=== PATIENT | female | born 1940 | race Caucasian/White ===

== ENCOUNTER → 2023-12-16 12:49 | Outpatient (REF) | payer OTHER, SELFPAY | LOC: HWRAD 12:49 | PROVIDERS: ATTENDING PHYSICIAN Internal Medicine; FAMILY PHYSICIAN Family Medicine | DX: M81.0 Age-related osteoporosis without current pathological fracture (principal) | CPT/HCPCS: 77080 ==

== ENCOUNTER → 2024-03-06 08:02 | Outpatient (REF) | payer OTHER, SELFPAY | LOC: WOUND 08:02 | PROVIDERS: ATTENDING PHYSICIAN Surgery; FAMILY PHYSICIAN Family Medicine | DX: L97.829 Non-pressure chronic ulcer of other part of left lower leg with unspecified severity (principal); R60.0 Localized edema; I48.11 Longstanding persistent atrial fibrillation; I48.91 Unspecified atrial fibrillation; I50.32 Chronic diastolic (congestive) heart failure; Z79.01 Long term (current) use of anticoagulants | CPT/HCPCS: 99203 ==

== ENCOUNTER → 2024-03-27 13:46 | Outpatient (REF) | payer OTHER, SELFPAY | LOC: HWRCS 13:46 | PROVIDERS: ATTENDING PHYSICIAN Internal Medicine Cardiovascular Disease; FAMILY PHYSICIAN Family Medicine | DX: I48.91 Unspecified atrial fibrillation (principal); R60.0 Localized edema; R53.83 Other fatigue | CPT/HCPCS: 93306 ==

== ENCOUNTER → 2024-11-03 12:56 | Outpatient (REF) | payer OTHER, SELFPAY | LOC: RAD 12:56 | PROVIDERS: ATTENDING PHYSICIAN Surgery; FAMILY PHYSICIAN Family Medicine | DX: K43.2 Incisional hernia without obstruction or gangrene (principal); R10.84 Generalized abdominal pain | CPT/HCPCS: 74176 ==

== ENCOUNTER → 2025-04-15 12:34 | Outpatient (REF) | payer OTHER, SELFPAY | LOC: RCS 12:34 | PROVIDERS: ATTENDING PHYSICIAN Internal Medicine Cardiovascular Disease; FAMILY PHYSICIAN Family Medicine | DX: I50.32 Chronic diastolic (congestive) heart failure (principal); R42 Dizziness and giddiness | CPT/HCPCS: 93306 ==

== ENCOUNTER 2025-04-22 06:06 | Day surgery (SDC) | payer OTHER, SELFPAY ==
[2025-04-22] VITALS (10 sets, daily range): BP systolic 95–141; BP diastolic 72–96; BMI 30.3
--- NOTE | 2025-04-22 08:34 | ITS.CL.PACE ---
[employer] - Pacemaker Implant
Pacemaker Implant
Procedure Report:
Left Bundle Branch pacing Permanent Pacemaker Placement:
Ms. Taveras is an 84 years old woman with permanent atrial fibrillation with difficult to control heart rate and heart failure with preserved ejection fraction with NYHA class III heart failure symptoms with severe bradycardia and pauses with
pre-syncope was recommended a cardiac resynchronization therapy with LBB pacing.
Indications:
Permanent atrial fibrillation with rapid ventricular response with heart failure (NYHA class III symptoms) failed medical therapy and bradycardia with pre-syncope.
Date of the Procedure: 04/22/25
Pre-Operative Diagnosis: Atrial fibrillation with severe bradycardia and pauses with pre-syncope and hx of rapid ventricular response for ablate and pace strategy.
Post-Operative Diagnosis: Atrial fibrillation with rapid ventricular response for ablate and pace strategy.
Procedure Performed: MATTRESS INSPECTOR-P IMPLANTATION with LEFT BUNDLE BRANCH PACING
Surgeon:
Adele Clement MD
Assistants:
EP staff
Anesthesia:
See anesthesia records
Detailed Description of the Procedure:
The patient was identified using hospital identification and informed consent obtained for the procedure. The risks were explained to the patient and the family including, but not limited to: Bleeding, infection, arrhythmia, stroke,
vascular/cardiac/lung puncture, surgery, pacemaker dependency/device malfunction. All questions were answered.
A surgical pause was performed in accordance with hospital regulations. Anesthesia service provided sedation as reported separately. Antibiotics administered IV for risk of bacterial colonization. After obtaining informed and written consent, the
patient was brought to the electrophysiology laboratory.
The initial rhythm was atrial fibrillation.
The left chest was prepped from the nipple to the angle of the jaw with chlorhexidine, and draped following sterile technique in usual routine.�
A surgical pause and time out was performed immediately prior to the procedure with review of her medical history, recent labs, allergies and medications with site of procedure identified and consent noted in the chart. Antibiotics pre operatively
given. All team members concurred.
Following infiltration with local anesthetic, the cephalic vein cut down was performed. The guide wire was advanced to the inferior vena cava (IVC) under flouro guidance.
The guide wire was advanced to the RA and was advanced to the RV. The preformed curved long hemostatic peel away HIS sheath was advanced into the RV cavity. A left bundle pacing wire was advanced into the sheath to the tip with ventricular signals
noted with unipolar manner. The HIS location was identified under guidance of the flouroscopy and the pacing wire signals. The sheath with the pacing lead was moved deeper into the RV cavity on the septum at a more inferior and distal to the HIS
signals.
Once adequate signals were noted on the electrograms of the pacing lead in the sheath with W pattern signals on the RV septum, the lead was advanced and clockwise turns were done under fluoroscopic guidance. The septum was engaged and the lead was
paced intermittently after every 2-3 turns. The Impedance of the lead was measured that remained stable around 700 Ohm and the lead was not able to advance into the septum. The pacing signals from the lead showed only RV septal pacing, though narrow
but not left bundle pacing. This was thought to be due to the entanglement effect of the lead to the septal endocardium. The decision was made to remove the lead and relocate to another locations.
Another septal location was identified with adequate signals noted on the pacing leads and good flouroscopic location. There was sheath approximation conformed on [place] view and the pacing lead was advanced with clockwise turns into the septal
location. The septum was successfully engaged. The lead was paced and septal pacing was noted. The sheath was placed again to the septum and the lead was advanced 2-3 turns with pacing with each advancement. The ventricular capture was monitored
throughout and the captures gradually changed from RV pacing to non-selective pacing to LBB pacing with R wave on V1.
With RBBB pattern noted on the pacing lead, it was decided to accept the location as optimal location. The long guiding sheath was cut and removed from the RV without change in lead position, impedance, sensing, or capture. The lead was sutured to
the underlying pectoralis fascia with 2-0 Ethibond stitches.
The leads were attached to the pulse generator in standard configuration with acceptable sensing and threshold parameters. The pocket was created using blunt dissection. Excellent hemostasis achieved. The pocket was irrigated with antibiotic
solution; the pocket was inspected with no active bleeding noted. The device and the leads were placed in the pocket.
Deep subcutaneous tissues were closed with two layers of 2-0 VLOC sutures; intermediate subcutaneous tissue was reopposed using a running 2-0 V loc suture, and the dermis was reopposed using a running 4-0 V loc subcuticular suture. A pressure
dressing was applied. Sponge counts / sharp counts were appropriate.
Procedure End:
The procedure was tolerated well. Aquacel bandaged was applied.
Estimated Blood loss:
10 cc
Specimens Removed:
No cultures and no specimens were obtained. No intraoperative pathology was identified.
Urine output:
None
Packs / Drains/ Tubes:
None
Instrument / Sponge Count Correct:
Yes
Flouro time:
2.9min
Complications of the Procedure:
None
Condition of Patient at Time of Transfer:
Hemodynamically stable with no neurological or vascular compromise.
Device information:�
Generator: [employer]; Model: W1SR01; Serial # [id number]�
����������� RV LBB pacing lead: [employer]; Model: 3830-69; Serial # [id number]
����������������������� Measured data on the RV lead was sensing of 8 mV, impedance of 580 ohms and threshold of 0.375 V at 0.4ms.
PROGRAMMING PARAMETERS:�
Kendall parameter settings were VVIR 60 �
�����������
����������� Rate Adaptive A-V Interval: on
Summary:
Successful implantation of MRI compatible LBB pacing single chamber pacemaker.
Results/Recommendations:
-Please follow up CXR�
1. Please provide patient with adequate pain control�
Instructions to be given to patient:�
- Please follow up with [facility] at [address] [place] [address] ([phone]) to get your wound checked in 2 weeks of your discharge. Then follow with
- Do not wet incision site until after it is evaluated at cardiology clinic. No baths or showers until then. Sponge baths / showers are OK but dab dry the dressing after it is wet.�
- Allow 'steri strips' to fall off on their own�
- Do not lift left elbow above shoulder, particularly with sudden jerking movements, for 1 month�
- Do not lift anything weighing more than 5 pounds with the left arm for 1 month�
- If you notice any fevers, shortness of breath, lightheadedness, chest pain, or worsening swelling in the wound site, please contact the arrhythmia clinic, contact your budget coordinator, or present to the hospital for evaluation.�
Adele Clement MD
Electrophysiology
[2025-04-22] MEDS: TYLENOL 650 MG PO (09:59)
== END 2025-04-22 11:25 | disposition home or self-care (01) ==
LOC: CATH 06:06
PROVIDERS: ATTENDING PHYSICIAN Internal Medicine Cardiovascular Disease; FAMILY PHYSICIAN Family Medicine; OTHER PHYSICIAN Internal Medicine Cardiovascular Disease
DX: I13.0 Hypertensive heart and chronic kidney disease with heart failure and stage 1 through stage 4 chronic kidney disease, or unspecified chronic kidney disease (principal); R55 Syncope and collapse; R00.1 Bradycardia, unspecified; I48.21 Permanent atrial fibrillation; I50.32 Chronic diastolic (congestive) heart failure; N18.30 Chronic kidney disease, stage 3 unspecified; Z79.01 Long term (current) use of anticoagulants; Z79.899 Other long term (current) drug therapy
CPT/HCPCS: 33207; 71045; 93005; C1769; C1786; C1887; C1892; C1898